=== PATIENT | female | born 1960 | race Caucasian/White ===

== ENCOUNTER → 2017-08-10 | Outpatient (CLI) | payer BC ==
[~2017-08-10] MED LIST: BELVIQ; CALCIUM 600MG+D1 TAB PO; ESTRACE 1MG1 MG/TAB PO; FLECTOR1.3%; GLUCOSAMINE 1000; JOINT JUICE; LORTAB 5/500 501 TAB PO; MOBIC15 MG PO; MUCINEX DM 60 M1 TER PO; MULTI VITAMINS1 TAB; NO HOME MEDICATIONS; NORCO 325 MG-7.1 TAB PO; OMEGA-3 FISH1000 MG; PERCOCET 325 MG1 TA2 PO; PROBIOTIC FORMU1 CAP PO; ROXICODONE 55 MG/TAB PO; SUPER B COMPLEX; VALIUM 5MG T5 MG/TAB PO
== END ==
LOC: MC.RAD 10:19
DX: Z12.31 Encounter for screening mammogram for malignant neoplasm of breast (principal)

== ENCOUNTER 2018-02-14 13:43 | Emergency (ER) | payer BC ==
[~2018-02-14] VITALS: Ht 160 cm; Wt 75.9 kg
[2018-02-14 13:55] VITALS: BP 142/74; TEMP 97.9
[2018-02-14] MEDS ORDERED: COZAAR100 MG PO (14:38)
[2018-02-14] MEDS ORDERED: PERCOCET 325 MG1 TAB PO (15:51)
[2018-02-14 16:25] VITALS: PULSE 85
== END 2018-02-14 16:25 | disposition home or self-care (01) ==
LOC: COL.ER 13:43
DX: S92.011A Displaced fracture of body of right calcaneus, initial encounter for closed fracture (principal); I10 Essential (primary) hypertension; W11.XXXA Fall on and from ladder, initial encounter; Y92.009 Unspecified place in unspecified non-institutional (private) residence as the place of occurrence of the external cause
CPT/HCPCS: J1170; J1885; Q4045

== ENCOUNTER 2018-11-10 13:45 | Emergency (ER) | payer BC ==
[~2018-11-10] VITALS: Ht 312.4 cm; Wt 74.1 kg
[~2018-11-10 13:45] MED LIST changes: +COZAAR100 MG PO; +PERCOCET 325 MG1 TAB PO
[2018-11-10 13:52] VITALS: BP 137/70; TEMP 96.4
[2018-11-10] MEDS ORDERED: PROTONIX 40MG T40 MG PO (14:09)
[2018-11-10] MEDS ORDERED: LEVAQUIN 5500 MG/TA1 PO (14:57)
[2018-11-10 15:13] VITALS: PULSE 82
== END 2018-11-10 15:10 | disposition home or self-care (01) ==
LOC: COL.ER 13:45
DX: G97.1 Other reaction to spinal and lumbar puncture (principal); B19.20 Unspecified viral hepatitis C without hepatic coma; Z98.890 Other specified postprocedural states; Z90.49 Acquired absence of other specified parts of digestive tract; Z90.710 Acquired absence of both cervix and uterus

== ENCOUNTER → 2018-11-19 | Outpatient (CLI) | payer BC ==
[~2018-11-19] MED LIST changes: +LEVAQUIN 5500 MG/TA1 PO; +PROTONIX 40MG T40 MG PO
[2018-11-19 15:30] VITALS: BP 85/66; PULSE 85
[2018-11-19 15:45] VITALS: BP 126/69; PULSE 78
--- NOTE | 2018-11-19 15:55 | NUR ---
IN ROOM AND ASSISTED PT TO DRESS. INT DC'D INTACT AND PRESSURE DRESSING APPLIED. PT LEAVES DWITH HER IN WHEELCHAIR.
== END ==
LOC: COL.RAD 12:17
DX: M51.27 Other intervertebral disc displacement, lumbosacral region (principal); M99.73 Connective tissue and disc stenosis of intervertebral foramina of lumbar region; M89.38 Hypertrophy of bone, other site; G83.4 Cauda equina syndrome; Z98.890 Other specified postprocedural states
CPT/HCPCS: A9585; J2250; J3010

== ENCOUNTER → 2019-03-09 | Outpatient (CLI) | payer BC | LOC: COL.RAD 03-02 09:00 | DX: M19.071 Primary osteoarthritis, right ankle and foot (principal); Z87.81 Personal history of (healed) traumatic fracture | CPT/HCPCS: J3301; Q9967 ==

== ENCOUNTER → 2021-01-15 | Outpatient (CLI) | payer BC | LOC: MC.RAD 08:45 | DX: Z12.31 Encounter for screening mammogram for malignant neoplasm of breast (principal); N64.89 Other specified disorders of breast ==

== ENCOUNTER → 2021-01-28 | Outpatient (CLI) | payer BC | LOC: MC.RAD 09:54 | DX: N64.89 Other specified disorders of breast (principal) ==